=== PATIENT | female | born 1995 | race Two or more races ===

== ENCOUNTER 2016-12-23 13:10 | Emergency (ER) | payer OTHER ==
[~2016-12-23] VITALS: Ht 160 cm; Wt 62.6 kg
--- NOTE | 2016-12-23 13:15 | NUR ---
[id number], [id number]: ALLERGIC REACTION TO PEANUTS. 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 RR is even and unlabored with NAD noted. Skin is warm and dry. Placed on the monitor. Speaks in full sentences. Denies SOB. Dr Peña at BS for eval.
[2016-12-23 14:30] VITALS: BP 125/71
--- NOTE | 2016-12-23 14:30 | NUR ---
IV removed. Catheter intact and site benign. Pressure and 4x4 applied to site. No bleeding noted.Patient discharged to home in stable condition. Written and verbal after care instructions given. Patient verbalizes understanding of instruction.
== END 2016-12-23 15:13 | disposition home or self-care (01) ==
LOC: ER 13:12
DX: T78.1XXA Other adverse food reactions, not elsewhere classified, initial encounter (principal); Y92.89 Other specified places as the place of occurrence of the external cause; Z91.018 Allergy to other foods; Z91.010 Allergy to peanuts
CPT/HCPCS: 96361; 96374; 96375; 99284; A4606; J1200; J2405 ×2; J2930; J7030; Z7610